=== PATIENT | female | born 1975 | race Hispanic/Latino ===

== ENCOUNTER 2021-07-07 17:09 | Emergency (ER) | payer OTHER ==
[~2021-07-07] VITALS: Ht 162.6 cm; Wt 86.2 kg
[2021-07-07] MEDS ORDERED: LIDOCAINE1 EAC1 TOP (18:21)
[2021-07-07] MEDS ORDERED: MORPHINE SULFATE INJ 4 MG/ML INJ 1ML IM ONE (18:30)
[2021-07-07] MEDS ORDERED: MORPHINE SULFATE INJ 4 MG/ML INJ 1ML ONE (18:39)
== END 2021-07-07 18:20 | disposition home or self-care (01) ==
LOC: FSED 17:49
DX: M54.32 Sciatica, left side (principal); E03.9 Hypothyroidism, unspecified; Z90.49 Acquired absence of other specified parts of digestive tract
CPT/HCPCS: 99282; J2270